=== PATIENT | male | born 1990 | race Hispanic/Latino ===

== ENCOUNTER 2019-01-03 10:09 | Emergency (ER) | payer OTHER ==
[~2019-01-03] VITALS: Ht 172.7 cm; Wt 86.2 kg
[2019-01-03] MEDS ORDERED: WATER ONE (10:13)
[2019-01-03 10:29] LABS: BASOPHIL # 0.1 10^3/uL (0.0-0.1); BASOPHIL % 0.7 % (0.0-0.2); EOSINOPHIL # 0.1 10^3/uL (0.0-0.2); EOSINOPHIL % 0.5 % (0.0-5.0); HEMOGLOBIN 16.7 g/dL (13.9-16.3); LYMPHOCYTES % 25.9 % (24.0-44.0); MEAN CELL HGB 29.4 pg (26-34); MEAN CELL HGB CONCENTRATION 34.7 g/dL (33-37); MEAN CORP VOLUME 84.7 fL (78-100); MONOCYTES % 8.5 % (5.0-12.0); NEUTROPHIL # 7.4 10^3/uL (1.8-7.7); NEUTROPHILS % 63.4 % (41.0-85.0); RED CELL DISTRIBUTION WIDTH 12.9 % (11.5-14.5); WHITE BLOOD CELL 11.7 10^3/uL (4.5-11.0)
[2019-01-03 10:32] VITALS: BP 159/92
--- NOTE | 2019-01-03 10:49 | DIREP ---
PROCEDURE:CT HEAD OR BRAIN W/O CONTRAST COMPARISON:None. INDICATIONS:blunt force L orbital area TECHNIQUE:CT images were created without intravenous contrast. FINDINGS: VENTRICLES:The ventricles are normal in size and configuration. CEREBRUM:Normal cerebral morphology with appropriate tai white matter differentiation. CEREBELLUM:Negative. BRAINSTEM:Negative. BASAL CISTERNS:Negative. HEMORRHAGE:No MASS LESION:No ACUTE INFARCT:No SKULL:Normal. SINUSES:Normal. OTHER:None CONCLUSION:Normal examination. Dictated by: Josue Sanchez MD on 01/03/2019 at 10:47 AM
[2019-01-03 10:51] LABS: ALANINE AMINOTRANSFERASE(ML) 43 U/L (12-78); ALKALINE PHOSPHATASE 98 U/L (50-136); ASPARTATE AMINO TRANSFERASE 23 U/L (0-35); CARBON DIOXIDE 13.5 mmol/L (20.0-32); GLUCOSE 116 mg/dL (70-110)
--- NOTE | 2019-01-03 11:05 | NUR ---
PT FAMILY RACHEL CAROLANN SUP IS ON PHONE WITH PT MOTHER WHO IS GOING TO COME FROM [place] TO [facility].
[2019-01-03] MEDS ORDERED: LIDOCAINE 1% VIAL ONE (11:13)
[2019-01-03 11:30] VITALS: BP 172/86
--- NOTE | 2019-01-03 11:30 | NUR ---
SUTURES DR ROJAS IS AT BEDSIDE TO PLACE SUTURES TO LACERATION IN FOREHEAD.
[2019-01-03] MEDS ORDERED: TRIPLE ANTIBIOTIC OINTMENT TP ONE (11:44)
--- NOTE | 2019-01-03 11:48 | NUR ---
LACERATION NEOSPORIN APPLIED TO LAC, COVERED WITH BANDAID. PT MORE ALERT, ABLE TO ANSWER QUESTIONS APPROPRIATLEY. STATES HE HAS HAD A TETANUS SHOT RECENTLY.
--- NOTE | 2019-01-03 12:00 | ER.PDOC ---
General Chief Complaint: Head Injury Stated Complaint: FALL,HEAD/LEFT EYE INJURY/ SZ Time seen by MD: 11:22 Source: patient Exam Limitations: clinical condition History of Present Illness Timing/Onset/Duration: Single Episode Character Of Seizures: partially Motor Activity: shaking all over Post-ictal Symptoms: confusion Injury: head Prior symptoms/Treatment: Similar symptoms previous Past Medical History Medical History: no pertinent history Surgical History: no surgical history Social History Smoking: non-smoker Alcohol Use: occassionally Drug Use: none Reviewed Nursing Reviewed: Vital Signs, Abn. Noted All Other Systems: Reviewed and Negative Physical Exam General Appearance: lethargic, confused (post-ictal) EENT: laceration (L EYE BROW) Neck/Back: neck supple, non-tender Respiratory: no resp distress, breath sounds nml, no evidence of rib injury CVS: reg rate & rhythm, heart sounds nml Abdomen: non-tender, no organomegaly, no distention Skin: color nml, no rash, warm/dry Extremities: non-tender, nml ROM, no pedal edema Observed Seizure Activity: generalized Neuro/Psych: oriented x 3, speech nml, mood/affect nml Cranial Nerves: nml tested Cerebellar: nml tested, nml Romberg Sensorimotor: no motor deficit, no sensory deficit, reflexes nml Results/Orders Results/Orders Orders - BEAU ROJAS MD Ct Head Wo Contrast (01/03/19 10:13) Water For Irrigation,Sterile (Water) (01/03/19 10:13) Cbc With Auto Diff (01/03/19 10:14) Comprehensive Metabolic Panel (01/03/19 10:14) Creatine Kinase (01/03/19 10:14) PT (01/03/19 10:14) Partial Thromboplastin Time. (01/03/19 10:14) Urinalysis (01/03/19 10:14) Troponin I (01/03/19 10:14) Drug Screen Medical(Ml) (01/03/19 10:14) Alcohol(Ml) (01/03/19 10:14) Lidocaine Hcl (Lidocaine 1% Vial) (01/03/19 11:13) Neomycin/Bacitracin/Polymyxinb (Triple A (01/03/19 11:44) Vital Signs Date Time Temp Pulse Resp B/P (MAP) Pulse Ox O2 Delivery O2 Flow Rate FiO2 01/03/19 10:32 14 01/03/19 10:32 98.0 114 14 159/92 (114) 95 Room Air 98.0 01/03/19 10:28 98.0 114 14 98.0 01/03/19 10:28 98.0 114 20 95 Room Air 98.0 Laboratory Tests Test 01/03/19 10:22 White Blood Count 11.7 10^3/uL (4.5-11.0) H Red Blood Count 5.68 10^6/uL (4.50-5.90) Hemoglobin 16.7 g/dL (13.9-16.3) H Hematocrit 48.1 % (37.0-53.0) Mean Corpuscular Volume 84.7 fL (78-100) Mean Corpuscular Hemoglobin 29.4 pg (26-34) Mean Corpuscular Hemoglobin Concent 34.7 g/dL (33-37) Red Cell Distribution Width 12.9 % (11.5-14.5) Platelet Count 397 10^3/uL (150-400) Mean Platelet Volume 10.0 fL (7.8-11.0) Neutrophils (%) (Auto) 63.4 % (41.0-85.0) Lymphocytes (%) (Auto) 25.9 % (24.0-44.0) Monocytes (%) (Auto) 8.5 % (5.0-12.0) Neutrophils # (Auto) 7.4 10^3/uL (1.8-7.7) Lymphocytes # (Auto) 3.0 10^3/uL (1.0-4.8) Monocytes # (Auto) 1.0 10^3/uL (0.3-0.8) H Absolute Immature Granulocyte (auto 0.12 10^3 u/L (0-2) Eosinophils % 0.5 % (0.0-5.0) Basophils % 0.7 % (0.0-0.2) H Basophils # 0.1 10^3/uL (0.0-0.1) Eosinophil Count 0.1 10^3/uL (0.0-0.2) Prothrombin Time 10.4 SEC (9.8-11.9) Prothrombin Time INR (Non-Therap) 1.0 PTT 21.4 SEC (24.67-30.72) Sodium Level 139 mmol/L (132-145) Potassium Level 3.7 mmol/L (3.6-5.2) Chloride Level 102.0 mmol/L (96-109) Carbon Dioxide Level 13.5 mmol/L (20.0-32) L Anion Gap 27.2 Blood Urea Nitrogen 15 mg/dL (7-18) Creatinine 1.35 mg/dL (0.59-1.40) Estimated GFR () 76.7 (>/=60) BUN/Creatinine Ratio 11.0 Glucose Level 116 mg/dL (70-110) H Calcium Level 9.0 mg/dL (8.4-10.5) Total Bilirubin 0.3 mg/dL (0.2-1.0) Aspartate Amino Transferase (AST) 23 U/L (0-35) Alanine Aminotransferase (ALT) 43 U/L (12-78) Alkaline Phosphatase 98 U/L (50-136) Total Creatine Kinase 193 U/L (39-308) Troponin I < 0.02 ng/mL (0.00-0.05) Total Protein 8.2 g/dL (6.4-8.2) Albumin 4.2 g/dL (3.4-5.0) Globulin 4.0 Serum Alcohol < 3 mg/dL (0-50) Percent Immature Gran (Cell Imm) 1.00 % (0.00-0.50) H Progress Progress LAC 3 CM - REPAIRED WITH 6-0 NYLON Departure Time of Disposition: 13:00 Disposition: 01 HOME, SELF-CARE Impression: Primary Impression: Seizures Additional Impression: Forehead laceration Condition: Improved Patient Instructions: Head Injury, Adult, [id number] Referrals: PCP,UNKNOWN (PCP) PRIMARY CARE PROVIDER Duration or Time Spent with Pa: 2 HRS BEAU ROJAS MD January 03, 2019 12:00
[2019-01-03] MEDS ORDERED: DILANTIN PO ONE (12:12)
[2019-01-03] MEDS ORDERED: DILANTIN PO STA (12:27)
[2019-01-03 12:30] VITALS: BP 165/91
[2019-01-03 13:30] VITALS: BP 152/84
[2019-01-03 13:37] VITALS: BP 159/92
== END 2019-01-03 13:30 | disposition home or self-care (01) ==
LOC: ER 10:09
DX: S01.112A Laceration without foreign body of left eyelid and periocular area, initial encounter (principal); R56.9 Unspecified convulsions; R79.1 Abnormal coagulation profile; W19.XXXA Unspecified fall, initial encounter; Y93.89 Activity, other specified; Y92.89 Other specified places as the place of occurrence of the external cause; Y99.8 Other external cause status
CPT/HCPCS: 12013; 36415; 70450; 80053; 80185; 80307; 82550; 84484; 85025; 85610; 85730; 99285; J2001; 12002